=== PATIENT | male | born 1990 | race African-American/Black ===

== ENCOUNTER 2022-08-13 18:17 | Emergency (ER) | payer MEDICAID, OTHER ==
[~2022-08-13] VITALS: Ht 182.9 cm; Wt 73.0 kg
[~2022-08-13 18:17] MED LIST: HORMONE THERAPY
[2022-08-13 18:24] VITALS: BP 126/90
[2022-08-13 22:02] LABS: BASOPHILS % 0.8 % (0.0-2.0); EOSINOPHILS % 0.7 % (0.0-5.0); HEMATOCRIT. 42.7 % (42.0-52.0); HEMOGLOBIN. 14.7 g/dL (14.0-18.0); LYMPHOCYTES % 21.9 % (20.0-50.0); MEAN CORPUSCULAR HEMOGLOBIN 32.2 pg (28.0-32.0); MEAN CORPUSCULAR VOLUME 93.5 fL (80.0-94.0); MEAN PLATELET VOLUME 6.9 fl (7.4-10.4); MONOCYTES % 7.3 % (2.0-8.0); NEUTROPHILS % 69.3 % (40.0-76.0); PLATELET 350 x1000/uL (130-400); RED BLOOD CELL COUNT 4.57 mill/uL (4.7-6.1); RED CELL DISTRIBUTION WIDTH 14.4 % (11.6-14.6)
[2022-08-13 22:05] LABS: CHLORIDE 98 mEq/L (98-107)
[2022-08-13] MEDS ORDERED: MAGNESIUM/ALUMINUM HYDROXIDE/SIMETHICONE 30ML UDC PO STA (22:08)
[2022-08-13 22:15] LABS: ETHANOL BLOOD < 10 mg/dL
[2022-08-14] MEDS ORDERED: OMEP40CA20 MT (00:39)
[2022-08-14] MEDS ORDERED: KETOROLAC 60MG/2ML VIAL IM ONE (00:45)
[2022-08-14] MEDS ORDERED: MAGNESIUM/ALUMINUM HYDROXIDE/SIMETHICONE 30ML UDC PO NR (00:45)
== END 2022-08-14 02:26 | disposition home or self-care (01) ==
LOC: ER 18:17
DX: R10.33 Periumbilical pain (principal); F15.10 Other stimulant abuse, uncomplicated
CPT/HCPCS: 36415; 74176; 80053; 80320; 83690; 85025; 96372; 99284; J1885; G0480